=== PATIENT | male | born 1955 | race Caucasian/White ===

== ENCOUNTER 2025-06-09 07:53 | Day surgery (SDC) | payer MEDICARE, OTHER ==
[2025-06-09] MEDS: Lactated Ringers 1,000 ML IV SCH (08:09)
[2025-06-09] MEDS ORDERED: Midazolam 1 MG/ML 2 ML SDV ONE (09:34)
[2025-06-09] MEDS ORDERED: Propofol 200 MG/20 ML SDV ONE (09:34)
[2025-06-09] MEDS ORDERED: fentaNYL 100 MCG/2 ML SDV ONE (09:34)
[2025-06-09 10:22] VITALS: BP 150/86; PULSE 77
== END 2025-06-09 10:56 | disposition home or self-care (01) ==
LOC: VM.SDS 07:53
PROVIDERS: ATTEND Student in an Organized Health Care Education/Training Program
DX: Z12.11 Encounter for screening for malignant neoplasm of colon (principal); D12.0 Benign neoplasm of cecum; D12.5 Benign neoplasm of sigmoid colon; K62.1 Rectal polyp; I10 Essential (primary) hypertension; E03.9 Hypothyroidism, unspecified; Z88.8 Allergy status to other drugs, medicaments and biological substances; Z80.0 Family history of malignant neoplasm of digestive organs; Z79.899 Other long term (current) drug therapy; Z79.890 Hormone replacement therapy; Z91.018 Allergy to other foods; Z87.891 Personal history of nicotine dependence; Z86.0100 Personal history of colon polyps, unspecified
CPT/HCPCS: 00811; 88305; J2250; J2704; J3010; J7120